=== PATIENT | female | born 1975 | race African-American/Black ===

== ENCOUNTER 2017-12-06 11:55 | Emergency (ER) | payer OTHER ==
[~2017-12-06] VITALS: Ht 165.1 cm; Wt 77.1 kg
[2017-12-06 12:07] VITALS: Ht 165.1 cm; Wt 77.1 kg
[2017-12-06 14:27] LABS: C REACTIVE PROTEIN 0.7 mg/dL (<=0.9); URIC ACID 3.9 mg/dL (2.6-6.0)
[2017-12-06 14:29] LABS: BASOPHIL % 0.3 % (0-2); PLATELET COUNT 253 x10^3mcL (130-400); RED CELL DISTRIBUTION WIDTH 13.6 % (11.5-14.5)
[2017-12-06 15:39] VITALS: BP 124/79
[2017-12-06 16:03] LABS: SOURCE FLUID KNEE
[2017-12-06 16:04] LABS: APPEARANCE FLUID CLOTTED; COLOR FLUID YELLOW; RBC FLUID 28 /cumm; SITE FLUID RIGHT; WBC FLUID 13 /cumm
[2017-12-06 16:12] LABS: ERYTHROCYTE SED RATE 19 mm/hr (0-20)
[2017-12-06 16:17] LABS: LYMPHOCYTE FLUID 75 %; MONOCYTE FLUID 3 %
== END 2017-12-06 16:52 | disposition home or self-care (01) ==
LOC: ED 11:55
PROVIDERS: Specialist
DX: M70.51 Other bursitis of knee, right knee (principal); Y93.89 Activity, other specified
CPT/HCPCS: 36415